=== PATIENT | male | born 1985 | race Caucasian/White ===

== ENCOUNTER 2019-07-23 17:13 | Outpatient (CLI) | payer OTHER, SELFPAY ==
--- NOTE | ~2019-07-23 | XR_ITS ---
XR pelvis 1-2V 07/23/2019 18:06 Indication: Low back pain Procedure: AP pelvis Comparison: No prior studies for comparison. Findings: Pelvic rings are intact. Sacral foramen are symmetric. No acute fracture or traumatic malal ignment. No significant soft tissue abnormality. Hips are symmetric without joint space narrowing. Impression: 1: No significant bone or joint abnormality. Reviewed, dictated and finalized at location A. IC RELATIONS STUDIES DIRECTOR Impression: 1: No significant bone or joint abnormality.
--- NOTE | ~2019-07-23 | XR_ITS ---
XR knee LT 2V, XR knee RT 2V 07/23/2019 18:05 Indication: Bilateral knee pain Procedure: 2 views each knee Comparison: No prior studies for comparison. Findings: Normal anatomic alignment. No significant joint space narrowing. No fracture or traumatic m alalignment. No significant joint effusion. Impression: 1: No significant bone or joint abnormality. Reviewed, dictated and finalized at location A. AL NURSE Impression: 1: No significant bone or joint abnormality. Impression: 1: No significant bone or joint abnormality.
--- NOTE | ~2019-07-23 | XR_ITS ---
XR hand LT 2V, XR wrist LT 2V 07/23/2019 18:07 Indication: Left wrist and hand pain or degenerative joint disease. Procedure: 2 views of the left hand and 2 views of the left wrist Comparison: No prior studies for comparison. Findings: No fracture, subluxation or dislocation. No significant joint space narrowing. No erosive c hanges. No soft tissue abnormalities. No foreign bodies. There is a bone island in the capitate. Impression: 1: No significant bone or joint abnormality. Reviewed, dictated and finalized at location A. NT ACCOUNT SPECIALIST Impression: 1: No significant bone or joint abnormality. Impression: 1: No significant bone or joint abnormality.
--- NOTE | ~2019-07-23 | XR_ITS ---
XR lumbar spine 2-3V 07/23/2019 18:06 Indication: Low back pain Procedure: 3 views lumbar spine Comparison: No prior studies for comparison. Findings: There is mild disc narrowing at L4-5. Mild dextrocurvature of the lumbar spine centered at L4. Pedicles intact. Vertebral body heights are maintained. No evidence for spondylolysis or spondylolisthesis. Sacral foramen are symmetric. Impression: 1: Mild lumbar spondylosis. Reviewed, dictated and finalized at location A. M MAN Impression: 1: Mild lumbar spondylosis.
== END 2019-07-23 17:14 | disposition home or self-care (01) ==
LOC: ANHIMG 17:38
PROVIDERS: PCP Internal Medicine; Visit Provider Internal Medicine
DX: M19.032 Primary osteoarthritis, left wrist (principal); M54.5 Low back pain; M25.562 Pain in left knee; M25.561 Pain in right knee; G89.29 Other chronic pain; M47.816 Spondylosis without myelopathy or radiculopathy, lumbar region
CPT/HCPCS: 72100; 72170; 73100; 73120; 73560

== ENCOUNTER 2019-08-07 08:42 | Outpatient (CLI) | payer OTHER, SELFPAY ==
[2019-08-07 09:29] LABS: Basophils Percent Auto 0.5 % (0.2-1.2); Eosinophils Absolute Auto 0.1 K/mm3 (0-0.3); Eosinophils Percent Auto 1.6 % (0-4.4); Hematocrit 43.6 % (42.0-52.0); Hemoglobin 14.4 g/dL (14.0-18.0); Immature Granulocyte Absolute 0.03 K/mm3 (0.00-0.031); Immature Granulocyte Percent A 0.4 % (0-0.5); Lymphocytes Absolute Auto 1.41 K/mm3 (0.9-3.2); Lymphocytes Percent Auto 18.3 % (18.3-44.2); Mean Corpuscular Hemoglobin 30.7 pg (26-34); Mean Platelet Volume 9.7 fl (7.4-10.4); Monocytes Absolute Auto 0.6 K/mm3 (0.1-0.6); Monocytes Percent Auto 7.1 % (2.6-8.5); Neutrophils Absolute Auto 5.6 K/mm3 (1.3-6.7); Neutrophils Percent Auto 72.1 % (45.5-73.1); Platelet Count Result 257 k/mm3 (150-375); Red Blood Count 4.69 M/mm3 (4.6-6.20); Red Cell Distribution Width 12.6 % (11.5-14.5); White Blood Count 7.7 K/mm3 (4.5-10.0)
[2019-08-07 09:32] LABS: Hemoglobin A1C 5.1 % (<5.7)
[2019-08-07 09:37] LABS: Alanine Aminotransferase 15 U/L (4-50); Albumin Level 4.4 g/dL (3.5-5.1); Alkaline Phosphatase 116 U/L (38-126); Aspartate Amino Transferase 17 U/L (17-59); Bilirubin,Total 0.3 mg/dL (0.2-1.3); Cholesterol 160 mg/dL (0-200); HDL Direct 93 mg/dL; Triglycerides 47 mg/dL (<150)
[2019-08-07 09:47] LABS: LDL Cholesterol Direct 59 mg/dL
== END 2019-08-07 08:43 | disposition home or self-care (01) ==
PROVIDERS: PCP Internal Medicine; Visit Provider Internal Medicine
DX: Z79.899 Other long term (current) drug therapy (principal)
CPT/HCPCS: 36415; 80061; 80076; 83036; 83090; 84443; 85025

== ENCOUNTER 2019-09-05 09:04 | Outpatient (CLI) | payer OTHER, SELFPAY ==
--- NOTE | 2019-09-05 11:00 | NEURO_ITS ---
Patient Number: [id number] Impression: # Complains of left hand pain. # Left ulnar neuropathy across the elbow. # No Carpal Tunnel Syndrome. # Normal needle/EMG exam. Nerve Conduction Studies Anti Sensory Summary Table Stim Site NR Peak (ms) P-T Amp (?V) Site1 Site2 Delta-P (ms) Dist (cm) Panda (m/s) Left Median Anti Sensory (2-3nd Digit) Wrist 3.1 21.5 Wrist 2-3nd Digit 3.1 14.0 45 Wrist 3.1 44.8 Wrist 2-3nd Digit 3.1 14.0 45 Right Median Anti Sensory (2-3nd Digit) Wrist 3.4 27.8 Wrist 2-3nd Digit 3.4 14.0 41 Wrist 3.2 32.2 Wrist 2-3nd Digit 3.4 14.0 41 Left Radial Anti Sensory (Base 1st Digit) Wrist 1.9 28.8 Wrist Base 1st Digit 1.9 0.0 Right Radial Anti Sensory (Base 1st Digit) Wrist 2.3 15.7 Wrist Base 1st Digit 2.3 0.0 Left Ulnar Anti Sensory (5th Digit) Wrist 2.7 55.8 Wrist 5th Digit 2.7 14.0 52 Right Ulnar Anti Sensory (5th Digit) Wrist 2.4 51.1 Wrist 5th Digit 2.4 14.0 58 Motor Summary Table Stim Site NR Onset (ms) O-P Amp (mV) Site1 Site2 Delta-0 (ms) Dist (cm) Panda (m/s) Left Median Motor (Abd Poll Brev) Wrist 3.8 1.5 Elbow Wrist 5.4 29.0 54 Elbow 9.2 7.4 Right Median Motor (Abd Poll Brev) Wrist 3.0 2.5 Elbow Wrist 4.8 28.0 58 Elbow 7.8 4.4 Left Ulnar Motor (Abd Dig Minimi) Wrist 2.4 8.5 A Elbow Wrist 5.7 29.0 51 A Elbow 8.1 6.4 B Elbow Wrist 3.9 24.0 62 B Elbow 6.3 7.1 Right Ulnar Motor (Abd Dig Minimi) Wrist 2.3 4.8 A Elbow Wrist 4.8 30.0 63 A Elbow 7.1 4.1 F Wave Studies NR F-Lat (ms) L-R F-Lat (ms) Left Median (Mrkrs) (Abd Poll Brev) 27.40 0.41 Right Median (Mrkrs) (Abd Poll Brev) 27.81 0.41 Left Ulnar (Mrkrs) (Abd Dig Min) 27.58 1.28 Right Ulnar (Mrkrs) (Abd Dig Min) 28.85 1.28 EMG Side Muscle Nerve Root Ins Act Fibs Amp Dur Recrt Comment Right 1stDorInt Ulnar C8-T1 Nml Nml Nml Nml Nml Right Ext Indicis Radial (Post Int) C7-8 Nml Nml Nml Nml Nml Right Ext Digitorum Radial (Post Int) C7-8 Nml Nml Nml Nml Nml Right BrachioRad Radial C5-6 Nml Nml Nml Nml Nml Right PronatorTeres Median C6-7 Nml Nml Nml Nml Nml Right Abd Poll Brev Median C8-T1 Nml Nml Nml Nml Nml Left 1stDorInt Ulnar C8-T1 Nml Nml Nml Nml Nml Left Ext Indicis Radial (Post Int) C7-8 Nml Nml Nml Nml Nml Left Ext Digitorum Radial (Post Int) C7-8 Nml Nml Nml Nml Nml Left BrachioRad Radial C5-6 Nml Nml Nml Nml Nml Left PronatorTeres Median C6-7 Nml Nml Nml Nml Nml Left Abd Poll Brev Median C8-T1 Nml Nml Nml Nml Nml Right ABD Dig Min Ulnar C8-T1 Nml Nml Nml Nml Nml Left ABD Dig Min Ulnar C8-T1 Nml Nml Nml Nml Nml MTDD
== END 2019-09-05 09:05 | disposition home or self-care (01) ==
PROVIDERS: PCP Internal Medicine; Visit Provider Internal Medicine
DX: M25.532 Pain in left wrist (principal); G89.29 Other chronic pain; R20.0 Anesthesia of skin; R20.2 Paresthesia of skin; G56.22 Lesion of ulnar nerve, left upper limb
CPT/HCPCS: 95886; 95911

== ENCOUNTER 2019-09-11 07:16 | Outpatient (CLI) | payer OTHER, SELFPAY ==
[2019-09-11 07:51] LABS: Influenza Control Positive
[2019-09-14 15:11] LABS: Testosterone Total 605 ng/dL (250-1100)
[2019-09-14 16:00] LABS: Vitamin D 1,25 (OH)2 Total 51 pg/mL (18-72); Vitamin D2 1,25 (OH)2 <8 pg/mL; Vitamin D3 1,25 (OH)2 51 pg/mL
== END 2019-09-11 07:17 | disposition home or self-care (01) ==
PROVIDERS: PCP Internal Medicine; Visit Provider Internal Medicine
DX: E55.9 Vitamin D deficiency, unspecified (principal); R53.82 Chronic fatigue, unspecified; R68.89 Other general symptoms and signs
CPT/HCPCS: 82652; 84403; 87804

== ENCOUNTER 2019-09-11 08:25 | Outpatient (CLI) | payer OTHER, SELFPAY ==
--- NOTE | ~2019-09-11 | XR_ITS ---
EXAMINATION: XR chest 2V EXAM DATE: 09/11/2019 08:44 INDICATION: Cough, sore throat, fever for one day. TECHNIQUE: Frontal and lateral projections of the chest obtained and reviewed. There is no prior mary dy for comparison. FINDINGS: The lungs are clear. There are no pleural effusions. The cardiomediastinal silhouette is within normal limits. There is no pneumothorax suspected. The bones and soft tissues are unremarkab le. IMPRESSION: Normal chest x-ray exam. Reviewed, dictated and finalized at location A. IMPRESSION: Normal chest x-ray exam.
== END 2019-09-11 08:26 | disposition home or self-care (01) ==
PROVIDERS: PCP Internal Medicine; Visit Provider Internal Medicine
DX: R05 Cough (principal)
CPT/HCPCS: 71046

== ENCOUNTER 2019-11-12 11:48 | Outpatient (CLI) | payer OTHER, SELFPAY ==
[2019-11-12 12:13] LABS: Influenza Control Positive
== END 2019-11-12 11:49 | disposition home or self-care (01) ==
LOC: ANHLAB 11:50
PROVIDERS: PCP Internal Medicine; Visit Provider Internal Medicine
DX: R53.83 Other fatigue (principal); R68.89 Other general symptoms and signs
CPT/HCPCS: 87635; 87804; C9803; U0003

== ENCOUNTER 2019-12-16 10:14 | Outpatient (CLI) | payer OTHER, SELFPAY ==
--- NOTE | ~2019-12-16 | MR_ITS ---
EXAMINATION: MR knee RT wo/w con DATE: 12/16/2019 11:25 INDICATION: Chronic right knee pain TECHNIQUE: Magnetic resonance imaging (MRI) of the right knee was performed without and with 14 mL Mu ltihance intravenous contrast. Sequences included coronal PD-weighted FSE, coronal PD-weighted FS FS E, sagittal T2-weighted FSE, sagittal PD-weighted FS FSE, axial PD weighted FS FSE coronal, axial T1- weighted FSE, axial T1-weighted FS FSE and postcontrast axial and sagittal T1-weighted FS FSE. COMPARISON: Right knee radiographs dated 07/23/2019 FINDINGS: Medial compartment: Medial meniscus is normal. Articular cartilage is normal. Lateral compartment: Longitudinal horizontal tear extending to the superior articular surface near the free edge of the an terior horn, body and posterior horn of the lateral meniscus. 10 x 8 x 4 mm parameniscal cyst along t he periphery of the posterior body of the lateral meniscus. There are couple additional tiny prior me niscal cysts along the periphery of the anterior horn. Mild chondral fissuring along the posterior me dial corner of the lateral tibial plateau. Patellofemoral compartment: Articular cartilage is normal. Ligaments and tendons: Anterior and posterior cruciate ligaments are normal. The medial collateral ligament and fibular naman ateral ligament complex are normal. The extensor mechanism is normal. The visualized medial and later al hamstring tendons as well as the iliotibial band are normal. Fluid: Physiologic amount of fluid in the joint space. No loose osteochondral bodies identified. Osseous/other: Normal marrow signal. No fracture or pathologic marrow replacing process. No abnormally enhancing les ions identified. IMPRESSION: 1. Horizontal lateral meniscal tear parameniscal cysts. 2. Small region of partial-thickness chondral fissuring along the posterior medial margin of the late ral tibial plateau. Reviewed, dictated and finalized at location A. IMPRESSION: 1. Horizontal lateral meniscal tear parameniscal cysts. 2. Small region of partial-thickness chondral fissuring along the posterior med ial margin of the lateral tibial plateau.
[2019-12-16 10:42] LABS: Estimated Glomerular Filt Rate > 60
== END 2019-12-16 10:15 | disposition home or self-care (01) ==
PROVIDERS: PCP Internal Medicine; Visit Provider Internal Medicine
DX: S83.281A Other tear of lateral meniscus, current injury, right knee, initial encounter (principal); X58.XXXA Exposure to other specified factors, initial encounter
CPT/HCPCS: 36415; 73723; A9577

== ENCOUNTER 2020-02-17 15:42 | Outpatient (CLI) | payer OTHER, SELFPAY ==
--- NOTE | ~2020-02-17 | MR_ITS ---
EXAMINATION: MR wrist LT wo con DATE: 02/17/2020 16:41 INDICATION: Left wrist pain and swelling. Ganglion cyst. TECHNIQUE: Magnetic resonance imaging (MRI) of the left wrist was performed without intravenous contr ast. Sequences performed include axial PD-weighted FSE and PD-weighted FS FSE, coronal PD-weighted FS FSE and T1-weighted SE, and sagittal PD-weighted FS FSE and PD-weighted FSE. COMPARISON: None FINDINGS: Intrinsic ligaments: The scapholunate and lunotriquetral ligaments are normal. Triangular fibrocartilage complex (TFCC): The triangular fibrocartilage including its foveal and styloid attachments as well as the dorsal and volar radioulnar ligaments are normal. The ulnar collateral ligament, ulnotriquetral ligament and men iscal homologue are normal. The extensor carpi ulnaris tendon sheath is normal. Extensor wrist: Extensor tendons of the wrist are normal. No tenosynovitis. Flexor wrist: The flexor tendons of the wrist are normal. No abnormality in the carpal tunnel with normal median n erve. Guyon's canal: Guyon's canal including the ulnar nerve and artery are normal. Bones/other: There is prominent marrow edema with loss of T1 signal along the ulnar side of the proximal articular surface of the lunate. The trabecular pattern at this location does not appear disrupted on the flui d sensitive sequences. There is increased sclerosis in this region on the prior radiographs. Low sign al intensity bone island in the central capitate. Remaining marrow signal is normal. No fracture. No cortical erosions. Joint spaces are normal with no focal cartilage defects appreciated. There is a sm all multiloculated ganglion cyst measuring 9 x 5 x 4 mm lucent palmar to the ulnar styloid process wh ich appears to arise from the proximal margin of the fluid-filled pisotriquetral recess. IMPRESSION: 1. 9 x 5 x 4 mm ganglion cyst located along the palmar margin of the ulnar styloid process. 2. Increased T2 and decreased T1 signal at the proximal ulnar side of the lunate with suggestion of s ubtle sclerosis on the prior radiographs which raises concern for osteonecrosis/avascular necrosis (K ienbock's disease) although typically this develops at the radial side of the lunate. The distributio n at the ulnar side of the lunate would be more typical of ulnocarpal impaction although there is nei ther cystic change at the lunate, positive ulnar variance nor evident tear of the triangular fiber ca rtilage complex, all findings which are typical of ulnocarpal impaction. In the acute setting differe ntial would include bone contusion. Reviewed, dictated and finalized at location A. IMPRESSION: 1. 9 x 5 x 4 mm ganglion cyst located along the palmar margin of the ulnar styl oid process. 2. Increased T2 and decreased T1 signal at the proximal ulnar side of the lunat e with suggestion of subtle sclerosis on the prior radiographs which raises con cern for osteonecrosis/avascular necrosis (Kienbock's disease) although typical ly this develops at the radial side of the lunate. The distribution at the ulna r side of the lunate would be more typical of ulnocarpal impaction although the re is neither cystic change at the lunate, positive ulnar variance nor evident tear of the triangular fiber cartilage complex, all findings which are typical of ulnocarpal impaction. In the acute setting differential would include bone c ontusion.
== END 2020-02-17 15:43 | disposition home or self-care (01) ==
PROVIDERS: PCP Internal Medicine; Visit Provider Internal Medicine
DX: M67.432 Ganglion, left wrist (principal); M89.9 Disorder of bone, unspecified
CPT/HCPCS: 73221

== ENCOUNTER 2020-08-25 14:13 | Outpatient (CLI) | payer OTHER, SELFPAY | END 2020-08-25 14:14 | disposition home or self-care (01) | LOC: ANHCOVIDVC 14:13 | PROVIDERS: PCP Internal Medicine; Visit Provider Internal Medicine | DX: Z23 Encounter for immunization (principal) | CPT/HCPCS: 0001A; 91300 ==

== ENCOUNTER 2020-09-15 14:07 | Outpatient (CLI) | payer OTHER, SELFPAY | END 2020-09-15 14:08 | disposition home or self-care (01) | LOC: ANHCOVIDVC 14:07 | PROVIDERS: PCP Internal Medicine | DX: Z23 Encounter for immunization (principal) | CPT/HCPCS: 0002A; 91300 ==

== ENCOUNTER → 2020-11-12 14:13 | Outpatient (CLI) | payer OTHER, SELFPAY ==
--- NOTE | ~2020-11-12 | US_ITS ---
EXAMINATION: US soft tissue groin RT INDICATION: Right lower quadrant pain TECHNIQUE: High-resolution ultrasound is performed in the area of clinical concern in the right groin . COMPARISON: None available FINDINGS: No sonographic abnormality is identified in the area of the patient's right groin pain. Giovanni ign appearing right groin lymph nodes are noted. The visualized vascular structures are unremarkable. IMPRESSION: 1. No sonographic correlate for the patient's symptoms. Reviewed, dictated and finalized at location A.
== END ==
PROVIDERS: PCP Internal Medicine; Visit Provider Surgery
DX: R10.31 Right lower quadrant pain (principal)
CPT/HCPCS: 76882

== ENCOUNTER → 2020-11-24 08:07 | Outpatient (CLI) | payer OTHER, SELFPAY ==
--- NOTE | ~2020-11-24 | CT_ITS ---
EXAMINATION: CT pelvis wo con DATE: 11/24/2020 08:29 INDICATION: Right groin pain. TECHNIQUE: Computed tomography (CT) of the pelvis was performed without intravenous contrast. Automat ed exposure control and iterative reconstruction technique were employed. The dose-length product was 393.40 mGy-cm. COMPARISON: Ultrasound 11/12/2020 FINDINGS: There are no dilated loops of bowel. The appendix is normal. There are no pathologically en larged lymph nodes. There is no free intraperitoneal fluid. There are changes of right inguinal herni a repair. There is mild lumbar spondylosis. IMPRESSION: 1. No etiology for the patient's symptoms. Reviewed, dictated and finalized at location A.
== END ==
PROVIDERS: PCP Internal Medicine; Visit Provider Surgery
DX: R10.31 Right lower quadrant pain (principal); M47.816 Spondylosis without myelopathy or radiculopathy, lumbar region
CPT/HCPCS: 72192

== ENCOUNTER → 2020-12-07 09:42 | Outpatient (CLI) | payer OTHER, SELFPAY ==
--- NOTE | ~2020-12-07 | MR_ITS ---
EXAMINATION: MR hip RT wo con DATE: 12/07/2020 10:38 INDICATION: Right lower quadrant pain and right groin pain. TECHNIQUE: Magnetic resonance imaging (MRI) of the right hip was performed without intravenous contr ast. Sequences included full-field axial and coronal PD-weighted FS FSE and T1-weighted FSE, small fi eld of view of the right hip with axial PD-weighted FS FSE, sagittal PD-weighted FS FSE, coronal T2- weighted FS FSE and coronal PD weighted FS FSE. Additional radial T1-weighted FGR oriented orthogonal to the acetabular rim were obtained for evaluation of the labrum. COMPARISON: None FINDINGS: Bones/labrum/cartilage: Alignment is normal. No fracture, avascular necrosis or pathologic marrow replacing process. Labrum is normal. Articular cartilage is normal. Lower lumbar facet osteoarthritis, mild bilaterally at L4-L 5 and moderate bilaterally at L5-S1. Fluid: Symmetric physiologic amount of fluid within both hip joints. Soft tissues: Normal and symmetric muscle bulk and signal in the pelvis and visualized proximal thighs. The iliopso as, gluteal and proximal hamstring tendons are normal. Mild scarring at the entrance to the right ing uinal canal consistent with provided history of prior inguinal hernia repair. Limited evaluation of v isceral organs of the pelvis is unremarkable including a normal appendix. No pathologically enlarged pelvic/inguinal lymphadenopathy. IMPRESSION: 1. Normal right hip and labrum. 2. Mild scarring at the right inguinal canal consistent with reported history of prior inguinal herni a repair. Reviewed, dictated and finalized at location A. IMPRESSION: 1. Normal right hip and labrum. 2. Mild scarring at the right inguinal canal consistent with reported history o f prior inguinal hernia repair.
== END ==
PROVIDERS: PCP Internal Medicine; Visit Provider Internal Medicine
DX: R10.31 Right lower quadrant pain (principal); M47.817 Spondylosis without myelopathy or radiculopathy, lumbosacral region
CPT/HCPCS: 73721

== ENCOUNTER 2022-04-09 14:56 | Outpatient (CLI) | payer OTHER, SELFPAY ==
--- NOTE | ~2022-04-09 | XR_ITS ---
EXAM: XR finger 3rd RT min 2V DATE: 04/09/2022 15:26 HISTORY: PAIN TO 3RD DIGIT AFTER BOWLING. . COMPARISON: None available. FINDINGS: Normal mineralization. No definite fracture or dislocation. No lytic or blastic lesion. 2 mm ossific density projecting off the dorsal margin of the right third distal phalange, may represent an osteophyte or enthesopathy, avulsion considered less likely given the lack of soft tissue swellin g. Mild osteoarthritic change in the DIP joints. No erosion or periosteal change. Soft tissues within normal limits. IMPRESSION: Likely right third distal phalange dorsal enthesophyte or osteophyte, avulsion fragment c onsidered less likely, particularly if there is no point tenderness or limitation of extension. Reviewed, dictated and finalized at location K. IMPRESSION: Likely right third distal phalange dorsal enthesophyte or osteophyt e, avulsion fragment considered less likely, particularly if there is no point tenderness or limitation of extension.
== END 2022-04-09 14:57 | disposition home or self-care (01) ==
PROVIDERS: PCP Internal Medicine; Visit Provider Internal Medicine
DX: M79.646 Pain in unspecified finger(s) (principal); R93.7 Abnormal findings on diagnostic imaging of other parts of musculoskeletal system
CPT/HCPCS: 73140

== ENCOUNTER 2022-05-06 07:26 | Outpatient (CLI) | payer OTHER, SELFPAY ==
[2022-05-06 07:41] LABS: Add Urine Microscopic? NO; Appearance Urine Clear (Clear); Basophils Absolute Auto 0.03 K/mm3 (0.00-0.10); Basophils Percent Auto 0.6 % (0.0-1.0); Bilirubin Urine Negative (Negative); Blood Urine Negative (Negative); Color Urine Yellow (Yellow); Eosinophils Absolute Auto 0.05 K/mm3 (0.02-0.50); Glucose Urine UA Negative (Negative); Hematocrit 42.6 % (40.0-54.0); Immature Granulocyte Absolute 0.01 K/mm3 (0.00-0.00); Immature Granulocyte Percent A 0.2 % (0.0-0.0); Ketones Urine Negative (Negative); Leukocyte Esterase Ur Negative LEU/UL (Negative); Lymphocytes Absolute Auto 1.04 K/mm3 (1.10-4.50); Lymphocytes Percent Auto 20.8 % (18.0-42.0); Mean Corpuscular HGB Conc 35.2 g/dL (32.0-36.0); Mean Corpuscular Hemoglobin 31.9 pg (27.0-31.0); Mean Corpuscular Volume 90.6 fL (78.0-102.0); Mean Platelet Volume 9.5 fl (8.7-11.0); Neutrophils Absolute Auto 3.5 K/mm3 (1.7-7.2); Neutrophils Percent Auto 69.4 % (50.0-70.0); Nitrate Urine Negative (Negative); Platelet Count Result 254 K/mm3 (150-420); Protein Urine Negative (Negative); Red Cell Distribution Width 11.7 % (11.6-14.4); Urobilinogen Urine 0.2 mg/dL (0.2-1.0); pH Urine 6.5 (5.0-8.0)
[2022-05-06 08:05] LABS: Alanine Aminotransferase 42 U/L (16-63); Albumin Level 4.4 g/dL (3.4-5.0); Alkaline Phosphatase 132 U/L (46-116); Anion Gap 11 mmol/L (8-16); Aspartate Amino Transferase 16 U/L (15-37); Bilirubin,Total 0.9 mg/dL (0.00-1.00); Blood Urea Nitrogen 15 mg/dL (7-18); Calcium 9.2 mg/dL (8.5-10.1); Carbon Dioxide 26 mmol/L (21-32); Chloride 106 mmol/L (98-108); Cholesterol 219 mg/dL (0-200); Estimated Glomerular Filt Rate > 60; Free T4 Free Thyroxine 0.96 ng/dL (0.76-1.46); Glucose 114 mg/dL (70-99); HDL Direct 77 mg/dL (40-60); LDL Cholesterol Calculated 120 mg/dL (<130); Osmolality Calculated 297 mOsm/kg (285-295); Sodium 143 mmol/L (136-145); Total Protein 7.7 g/dL (6.4-8.2); Triglycerides 111 mg/dL (0-150)
== END 2022-05-06 07:27 | disposition home or self-care (01) ==
LOC: CHSLAB 07:28
PROVIDERS: PCP Internal Medicine; Visit Provider Internal Medicine
DX: Z00.00 Encounter for general adult medical examination without abnormal findings (principal); Z79.899 Other long term (current) drug therapy; Z68.26 Body mass index [BMI] 26.0-26.9, adult; R73.01 Impaired fasting glucose
CPT/HCPCS: 36415; 80053; 80061; 81003; 83036; 84439; 84443; 85025

== ENCOUNTER 2023-09-08 14:49 | Outpatient (CLI) | payer OTHER, SELFPAY ==
--- NOTE | ~2023-09-08 | MR_ITS ---
EXAMINATION: MR wrist LT wo con DATE: 09/08/2023 15:35 INDICATION: Left wrist pain TECHNIQUE: Magnetic resonance imaging (MRI) of the left wrist was performed without intravenous contr ast. Sequences performed include axial PD-weighted FSE and PD-weighted FS FSE, coronal PD-weighted FS FSE and T1-weighted SE, and sagittal PD-weighted FS FSE and PD-weighted FSE. COMPARISON: Left wrist MR dated 02/17/2020 FINDINGS: Intrinsic ligaments: There is mild amorphous increased signal at the dorsal component of the scapholunate ligament consist ent with likely partial tear. The volar component of the scapholunate ligament is normal. The lunotri quetral ligament is normal. Triangular fibrocartilage complex (TFCC): Amorphous increased signal and thickening of the dorsal radioulnar ligament consistent with partial t ear. The central fibrocartilaginous disc of the triangular fibrocartilage complex along with its radi al, foveal and ulnar styloid attachments and the volar radioulnar ligament all appear normal. The darlyn otriquetral ligament is normal. Extensor wrist: There is mild soft tissue edema surrounding the normal-appearing extensor carpi ulnaris tendon at the level of the tip of the ulnar styloid process. Extensor tendons of the wrist are otherwise normal. N o tenosynovitis. Flexor wrist: The flexor tendons of the wrist are normal. No abnormality in the carpal tunnel with normal median n erve. Guyon's canal: Guyon's canal including the ulnar nerve and artery are normal. Bones/other: Again seen is nonspecific prominent marrow edema with associated loss of T1 marrow fat signal at the ulnar side of the proximal articular surface of the lunate which remains without associated degenerat erick cystic change. Large low signal intensity bone island in the capitate. No fracture, erosions or o ther pathologic or marrow replacing process. Joint spaces are normal with no focal cartilage defects appreciated. No interval change in a small ganglion cyst which arises from the proximal margin of th e pisotriquetral recess and the second slightly larger multiloculated ganglion cyst appears to arise from the midcarpal joint and extends along the palmar radial lunate ligament. IMPRESSION: 1. Persistent increased fluid signal and decreased T1 marrow fat signal at the proximal ulnar side of the lunate with differential including osteonecrosis/avascular necrosis or reactive change related t o ulnocarpal impaction. 2. Partial tear of the dorsal radioulnar ligament. 3. Partial tear of the dorsal component of the scapholunate ligament. Reviewed, dictated and finalized at location B. IMPRESSION: 1. Persistent increased fluid signal and decreased T1 marrow fat signal at the proximal ulnar side of the lunate with differential including osteonecrosis/lashanda scular necrosis or reactive change related to ulnocarpal impaction. 2. Partial tear of the dorsal radioulnar ligament. 3. Partial tear of the dorsal component of the scapholunate ligament.
== END 2023-09-08 14:50 ==
DX: S63.512A Sprain of carpal joint of left wrist, initial encounter (principal); S63.592A Other specified sprain of left wrist, initial encounter; X58.XXXA Exposure to other specified factors, initial encounter
CPT/HCPCS: 73221